=== PATIENT | female | born 1970 | race Two or more races ===

== ENCOUNTER 2018-11-19 13:30 | Emergency (ER) | payer MEDICARE, OTHER ==
[~2018-11-19] VITALS: Ht 154.9 cm; Wt 112.2 kg
[2018-11-19] MEDS ORDERED: ACETAMINOPHEN 500 MG TABLET PO ONE (14:15)
[2018-11-19] MEDS ORDERED: ALBU8HFA PUFF (14:16)
[2018-11-19] MEDS ORDERED: BACL10TA PO (14:16)
[2018-11-19] MEDS ORDERED: IBUP-2071 PO (14:16)
[2018-11-19] MEDS ORDERED: BUPR-93 PO (14:16)
[2018-11-19] MEDS ORDERED: SIME80 PO (14:16)
[2018-11-19] MEDS ORDERED: ARIP10TA8 PO (14:16)
[2018-11-19] MEDS ORDERED: TRAM50TA4 PO (14:16)
[2018-11-19] MEDS ORDERED: LOPE2 PO (14:16)
[2018-11-19] MEDS ORDERED: FLUT110HFA IH (14:16)
[2018-11-19] MEDS ORDERED: HYD50 PO (14:16)
[2018-11-19] MEDS ORDERED: OMEP20 PO (14:16)
[2018-11-19] MEDS ORDERED: ESCI20TA PO (14:16)
[2018-11-19 15:03] VITALS: BP 129/79
== END 2018-11-19 15:31 | disposition home or self-care (01) ==
LOC: EMS 13:30
DX: S09.91XA Unspecified injury of ear, initial encounter (principal); F32.9 Major depressive disorder, single episode, unspecified; F11.90 Opioid use, unspecified, uncomplicated; F12.90 Cannabis use, unspecified, uncomplicated; Z79.899 Other long term (current) drug therapy; X58.XXXA Exposure to other specified factors, initial encounter; Y93.89 Activity, other specified; Y92.89 Other specified places as the place of occurrence of the external cause; Y99.8 Other external cause status